=== PATIENT | female | born 1990 | race Caucasian/White ===

== ENCOUNTER 2017-03-20 16:19 | Emergency (ER) | payer MEDICAID, OTHER ==
[~2017-03-20] VITALS: Ht 162.6 cm; Wt 90.0 kg
[2017-03-20 16:21] VITALS: Ht 162.6 cm; Wt 90.0 kg
[2017-03-20] MEDS ORDERED: KETOROLAC 60 MG INJ IM STA (17:33)
--- NOTE | 2017-03-20 18:00 | ERD ---
ER Documentation Chief Complaint Date/Time DATE: 03/20/17 TIME: 17:30 Chief Complaint RT FOOT INJURY X 2 MONTHS AGO STEPPED ON SHARP PIECE OF WOOD , PAINFUL NOW HPI 26-year-old female who presents emergency department for right foot injury 2 months ago. Stated that she stepped on a sharp piece of wood. Never had a x- ray for this. No complaints of sharp pain to right foot. LMP: Stated it was a week ago. A0. Denies headache, head injury, neck pain, shoulder pain, chest pain, back pain, abdominal pain, nausea, vomiting, urinary symptoms, , possibility of being , numbness or tingling sensation, fever, chills. No known drug allergies. No past medical history. Surgical history of C- section. Does not take any prescription medication at home. Social: Works as a cashier assistant. ROS All systems reviewed and are negative except as per history of present illness. PMhx/Soc History of Surgery: Yes () Anesthesia Reaction: No Hx Neurological Disorder: No Hx Respiratory Disorders: No Hx Cardiac Disorders: No Hx Psychiatric Problems: No Hx Miscellaneous Medical Probl: No Hx Alcohol Use: No Hx Substance Use: No Hx Tobacco Use: No Smoking Status: Never smoker Physical Exam Vitals Vital Signs Date Time Temp Pulse Resp B/P Pulse Ox O2 Delivery O2 Flow Rate FiO2 03/20/17 16:21 98.3 90 18 139/89 98 Physical Exam Const: [] Head: Atraumatic Eyes: Normal Conjunctiva ENT: Normal External Ears, Nose and Mouth. Neck: Full range of motion..~ No meningismus. Resp: Clear to auscultation bilaterally Cardio: Regular rate and rhythm, no murmurs Abd: Soft, non tender, non distended. Normal bowel sounds Skin: No petechiae or rashes Back: No midline or flank tenderness Ext: No cyanosis, or edema. Right foot has mild swelling and tenderness to the lateral area of the superior part. Pedal pulse is within normal limits. Right ankle is unremarkable. Right knee is unremarkable. Bilateral hips are stable and unremarkable. Left lower extremity is unremarkable. No neurovascular deficit no neurological deficits. Skin is intact. Neur: Awake and alert Psych: Normal Mood and Affect Results 24 hrs Current Medications Medications (Trade) Dose Ordered Sig/Hudson Route PRN Reason Start Time Stop Time Status Last Admin Dose Admin Ketorolac Tromethamine (Toradol) 60 mg ONCE STAT IM 03/20/17 17:33 03/20/17 17:35 DC 03/20/17 18:02 Procedures/MDM 26-year-old female who presents emergency department for right foot injury 2 months ago. Stated that she stepped on a sharp piece of wood. Never had a x- ray for this. No complaints of sharp pain to right foot. LMP: Stated it was a week ago. A0. Denies headache, head injury, neck pain, shoulder pain, chest pain, back pain, abdominal pain, nausea, vomiting, urinary symptoms, , possibility of being , numbness or tingling sensation, fever, chills. No known drug allergies. No past medical history. Surgical history of C- section. Does not take any prescription medication at home. Social: Works as a cashier assistant. Physical exam: Right foot has mild swelling and tenderness to the lateral area of the superior part. Pedal pulse is within normal limits. Right ankle is unremarkable. Right knee is unremarkable. Bilateral hips are stable and unremarkable. Left lower extremity is unremarkable. No neurovascular deficit no neurological deficits. Skin is intact. Disease process was explained to the patient and family member. They both verbalized understanding and agreed with treatment, diagnostic imaging, plan of care, follow-up care. X-ray of the right foot: No acute osseous abnormality. POC urine : Negative. Treatment: Toradol IM. Jose wrap. Reevaluation: Denies headache, dizziness, blurry vision, neck pain, shoulder pain, back pain, chest pain, abdominal pain, numbness or tingling sensation. No episode of emesis in the emergency department. No neurovascular deficits prior to and after the application of Jose wrap. No neurological deficits. Differential diagnosis: Fracture versus displacement versus dislocation versus contusion versus sprain versus retained foreign body Final diagnosis: Foot contusion. Prescription: Motrin Follow-up with primary care physician the next 24-48 hours. Come back here in the emergency department for any new symptoms or any worsening of symptoms. All questions and concerns are answered. Patient verbalized understanding and agreed with the plan of care. Hemodynamically stable on discharge Departure Diagnosis: Primary Impression: Foot pain Additional Impression: Foot contusion Condition: Stable Additional Instructions: Follow-up with primary care physician the next 24-48 hours. Come back here in the emergency department for any new symptoms or any worsening of symptoms. All questions and concerns are answered. Patient verbalized understanding and agreed with the plan of care. BRAYAN PHILLIPS Mar 20, 2017 18:00
--- NOTE | 2017-03-20 18:46 | RADRPT ---
PROCEDURE: XR Foot. CLINICAL INDICATION: Injury, possible foreign body TECHNIQUE: Three views of the right foot are available for review. COMPARISON: None available FINDINGS: There is no acute osseous or articular abnormality. No evidence for fracture. Bone mineral density is preserved. The articular surfaces are smooth without evidence of marginal erosions. Type 2 os pe roneum. Plantar calcaneal spur. The soft tissues are intact without evidence of calcifications.. IMPRESSION: 1. No acute osseous abnormality. RPTAT: QQ .Chai Velasquez MD, Date Time Electronically viewed and signed by .Chai Velasquez MD, on 03/20/2017 18:46 .d/
[2017-03-20] MEDS ORDERED: IBUP800T25 PO (19:07)
== END 2017-03-20 19:49 | disposition home or self-care (01) ==
LOC: FTE 16:19
DX: S90.31XA Contusion of right foot, initial encounter (principal); W22.8XXA Striking against or struck by other objects, initial encounter; Y92.9 Unspecified place or not applicable
CPT/HCPCS: 73630; 96372; J1885; Z7502

== ENCOUNTER 2018-05-16 11:59 | Outpatient (CLI) | END 2018-05-16 14:00 | disposition home or self-care (01) ==

== ENCOUNTER 2018-06-02 10:33 | Inpatient (IN) | payer MEDICAID ==
[~2018-06-02] VITALS: Ht 154.9 cm; Wt 105.0 kg
[~2018-06-02 10:33] MED LIST: OXYTOCIN 30 UNITS/LR 500 ML BAG IV ONE; PREN-93 PO
[2018-06-02 11:00] VITALS: Ht 154.9 cm; Wt 105.0 kg
[2018-06-02] MEDS ORDERED: MISOPROSTOL 200 MCG TAB PR PRN ×2 (11:00→19:00)
[2018-06-02] MEDS ORDERED: CEFAZOLIN 2 GM/50 ML (PMX) 50 ML IVPB SCH (11:00)
[2018-06-02] MEDS ORDERED: OXYTOCIN 30 UNITS/LR 500 ML IV PRN ×2 (11:00→19:00)
[2018-06-02] MEDS ORDERED: METHYLERGONOVINE 0.2 MG INJ IM PRN ×2 (11:00→19:00)
[2018-06-02] MEDS ORDERED: CARBOPROST 250 MCG INJ IM PRN ×2 (11:00→19:00)
[2018-06-02] MEDS ORDERED: OXYTOCIN 30 UNITS/LR 500 ML IV SCH (11:00)
[2018-06-02] MEDS: LACTATED RINGER'S 1,000 ML IV SCH ×2 (11:16→18:42)
--- NOTE | 2018-06-02 14:53 | HP ---
Date/Time of Note Date/Time of Note DATE: 06/02/18 TIME: 14:46 OB - History Hx of Present Free Text/Dictation 27 years old female . 39 weeks 1 day . History of previous , admitted to the hospital for repeat . He has declined trial of labor vaginal delivery post . Chief Complaint: 39 weeks history of previous Estimated Due Date: Jun 08, 2018 : 2 Para: 1 Care: Good Care Obstetrical Complications: None Medical Complications: None Past Family/Social History * Past Medical, Surgical, Family and Obstetric Histories reviewed from chart. Rubella: immune RPR/VDRL: Negative GBS Status: Negative HBsAG: Negative OB Admission Exam Physical Exam HEENT: WNL Heart: Rhythm Normal Lungs: Clear, Equal Abdomen: WNL Extremities: Normal Reflexes: Normal Cervical Dilatation: None Effacement: 0% Membranes: Intact Heart Rate: 130's Accelerations: Accelerations Present Decelerations: No Decelerations Contractions on Admission: >10 Minutes Apart Intensity: Mild Last 72 hours Lab Results CBC & BMP 06/02/18 11:00 OB Assessment/Plan Reason for admission: other (39 weeks1/7 history of previous C section) Other plan: 27 years old 39 weeks history of previous . Admitted to the hospital for repeat . Patient has declined trial of labor post C- section. Complication of surgery including but not limited to bowel bladder injury wound infection, wound hematoma discussed. YUSUF AHMADI MD Jun 02, 2018 14:53
--- NOTE | 2018-06-02 14:57 | PREAC ---
Date/Time of Note Date/Time of Note DATE: 06/02/18 TIME: 14:55 Anesthesia Eval and Record Evaluation Time Pre-Procedure Interview DATE: 06/02/18 TIME: 14:55 Age 27 Sex female NPO: 8 hrs Preoperative diagnosis IUP Planned procedure Repeat Csection Past Medical History Past Medical History: None Surgery & Anesthesia Issues No known issue Meds Anticoagulation: No Beta Malik within 24 hr: No Reason Beta Malik not given: Pt. not on B-Malik Reported Medications Vit No.124/Iron/FA ( Vitamin Tablet) 1 Each Tablet, 1 EACH PO DAILY, TAB 05/16/18 Current Medications Lactated Ringer's 1,000 ml @ 125 mls/hr Q8H IV Last administered on 06/02/18at 11:16; Admin Dose 125 MLS/HR; Start 06/02/18 at 10:42 Cefazolin Sodium/ Dextrose 50 ml @ 100 mls/hr ONCE IVPB ; Start 06/02/18 at 11:00 Oxytocin/Lactated Ringer's 500 ml @ 125 mls/hr POST IV ; Start 06/02/18 at 11:00 Oxytocin/Lactated Ringer's 500 ml @ 0 mls/hr ONCE PRN IV VAGINAL BLEEDING; Start 06/02/18 at 11:00 Methylergonovine Maleate (Methergine) 0.2 mg ONCE PRN IM VAGINAL BLEEDING; Start 06/02/18 at 11:00 Carboprost Tromethamine (Hemabate) 250 mcg ONCE PRN IM VAGINAL BLEEDING; Start 06/02/18 at 11:00 Misoprostol (Cytotec) 1,000 mcg ONCE PRN MD VAGINAL BLEEDING; Start 06/02/18 at 11:00 Meds reviewed: Yes Allergies Coded Allergies: No Known Allergy (Unverified , 05/16/18) Allergies Reviewed: Yes Labs/Studies Labs Reviewed: Reviewed by anesthesiologist Result Diagram: 06/02/18 1100 Laboratory Tests 06/02/18 11:00 Blood Bank Test 06/02/18 11:00 Antibody Screen NEGATIVE Blood Type A POSITIVE Rh Immune Globulin Candidate NO test: Positive Studies: ECG Pre-procedure Exam Last vitals BP:106/56,pulse:78, spo2:100%, T:98,9 Airway: Adequate mouth opening, Adequate thyromental dist Mallampati: Mallampati II Teeth: Normal Lung: Normal Heart: Normal ASA Physical Status ASA physical status: 2 Emergency: None Planned Anesthetic Neuraxial: Spinal Planned Pain Management Sub-arachniod narcotics, Parenteral pain med Pre-operative Attestations Prior to commencing anesthesia and surgery, the patient was re-evaluated, there was verification of: *The patient's identity *The results of appropriate recent lab work and preoperative vital signs *The above evaluation not changing prior to induction *Anesthetic plan, risk benefits, alternative and complications discussed with patient/family; questions answered; patient/family understands, accepts and wishes to proceed. TIKI ALDRICH MD Jun 02, 2018 14:57
[2018-06-02] MEDS ORDERED: ONDANSETRON 4 MG INJ ONE (15:03)
[2018-06-02] MEDS ORDERED: morphine SULFATE/PF (10 MG/10 ML) INJ ONE (15:03)
[2018-06-02] MEDS ORDERED: PHENYLephrine (100 MCG/ML) 5ML SYG ONE (15:04)
[2018-06-02] MEDS ORDERED: OXYTOCIN 10 UNIT INJ ONE (15:04)
--- NOTE | 2018-06-02 16:18 | OPR ---
Operative Report Planned Procedure Free Text/Dictation 39 weeks . History of previous section. Declined Procedure date Jun 02, 2018 Procedure(s) Repeat Performed by see signature line Guest Relations Coordinator: MELISA BARBOSA MD 2nd Guest Relations Coordinator None Anesthesiologist: TIKI ALDRICH MD Pre-procedure diagnosis 39 weeks history of previous declines [id number] Anesthesia Type: [id number] spinal Post-Procedure Post-procedure diagnosis Same as above Findings Live Baby boy 8 and 9 Estimated Blood Loss: 500 - 600 mls Specimen(s) Adhesion tissue sent to pathology Grafts/Implant(s) none Complication(s) none Pt Condition post procedure: stable Procedure Description Under satisfactory spinal anesthesia patient prepped and draped and placed in supine position. Pfannenstiel incision was made. Incision carried through the subcutaneous tissue. Fascia incised to the length of incision. Rectus muscle divided in midline. Peritoneum exposed and entered to a vertical incision. Explo ration of abdomen revealed [gravid uterus at term normal-appearing tubes and ovaries.] Bladder flap was developed. Transverse incision was made in the lower segment of the uterus. Amniotic sac ruptured, [clear amniotic fluid noted.] Live baby boy was delivered from unengaged vertex.Naso oropharyngeal suction was performed. Baby handed to the team for immediate attention. Patient received 20 units of Pitocin. Placenta delivered manually intact. Uterine cavity cleaned with a wet sponge and drainage established. Uterus closed in 2 layers using Monocryl #1 in continuous fashion. Peritoneal cavity irrigated with warm saline. Sponge needle instrument reported to be correct. Abdominal peritoneum closed with 2-0 chromic catgut continuously. Fascia closed with #1 PDS in a continuous fashion. Subcutaneous tissue irrigated with warm saline and approximated with 2-0 chromic catgut skin closed with N sorb. Estimated blood loss 600 cc urine bag containing [200] mL of [clear] urine. Patient tolerated procedure well and transferred to recovery room in good condition. YUSUF AHMADI MD Jun 02, 2018 16:18
--- NOTE | 2018-06-02 16:51 | PAC ---
Date/Time of Note Date/Time of Note DATE: 06/02/18 TIME: 16:50 Post-Anesthesia Notes Post-Anesthesia Note Activity: WNL Respiratory function: WNL Cardiovascular function: WNL Mental status: Baseline Pain reasonably controlled: Yes Hydration appropriate: Yes Nausea/Vomiting absent: Yes Comments BP:120/56,pulse:72, spo2:100%, T:98,8 TIKI ALDRICH MD Jun 02, 2018 16:51
[2018-06-02] MEDS ORDERED: NALOXONE (0.4 MG/ML) INJ IV PRN (17:00)
[2018-06-02] MEDS ORDERED: DIPHENHYDRAMINE 50 MG INJ IV PRN (17:00)
[2018-06-02] MEDS ORDERED: ONDANSETRON 4 MG INJ IV PRN (17:00)
[2018-06-02] MEDS ORDERED: morphine 2 MG INJ IV PRN (17:00)
[2018-06-02 18:35] VITALS: BP 119/55; PULSE 92; RESP 18
[2018-06-02] MEDS ORDERED: LANOLIN HPA 1 PKT TOP PRN (19:00)
[2018-06-02] MEDS ORDERED: HYDROCODONE/APAP (5/325) TAB PO PRN (19:00)
[2018-06-02] MEDS ORDERED: OXYCODONE/ACETAMINOPHEN (5/325) TAB PO PRN ×2 (19:00)
[2018-06-02] MEDS ORDERED: CEFAZOLIN 1 GM/50 ML (PMX) 50 ML IVPB SCH (19:00)
[2018-06-02] MEDS: KETOROLAC 30 MG INJ IV PRN (19:01)
[2018-06-02 20:00] VITALS: BP 119/59; PULSE 95; RESP 18
[2018-06-02] MEDS: OXYTOCIN 30 UNITS/LR 500 ML IV SCH (21:08)
[2018-06-03] VITALS: BP 103/54; PULSE 107; RESP 18
[2018-06-03] MEDS: OXYTOCIN 30 UNITS/LR 500 ML IV SCH ×7 (01:36→22:40)
[2018-06-03] MEDS: KETOROLAC 30 MG INJ IV PRN ×2 (01:40→09:44)
[2018-06-03 04:00] VITALS: BP 104/54; PULSE 108; RESP 20
--- NOTE | 2018-06-03 04:30 | NUR ---
PT ASSISTED UP TO CHAIR. GAIT STEADY.
[2018-06-03] MEDS: LACTATED RINGER'S 1,000 ML IV SCH ×3 (06:29→18:42)
--- NOTE | 2018-06-03 06:30 | NUR ---
EOSS PT SAT UP IN CHAIR X 2HRS. FUNDUS FIRM AT U WITH SMALL TO MODERATE LOCHIA. PAIN MANAGED WELL. URINE OUTPUT WITHIH SAMINA LIMITS. BONDING WELL WITH BABY. CONDITION STABLE. CBC THIA MORNING.
[2018-06-03 08:00] VITALS: BP 117/59; PULSE 99
[2018-06-03 12:00] VITALS: BP 115/60; PULSE 98; RESP 18
[2018-06-03 16:00] VITALS: BP 119/68; PULSE 100; RESP 20
[2018-06-03] MEDS: IBUPROFEN 600 MG TAB PO SCH (17:23)
[2018-06-03] MEDS: HYDROCODONE/APAP (5/325) TAB PO PRN (18:28)
--- NOTE | 2018-06-03 18:55 | NUR ---
EOSS: PT STABLE, ASSISTED TO BATHROOM, AMBULATED WELL, VOIDED 600, DENIES DIZZINESS. NO DISTRESS NOTED. Addendum: 06/03/18 at 1856 by RE MARTIN RN Amended: Links added.
[2018-06-03 20:00] VITALS: BP 126/74; PULSE 105; RESP 20
[2018-06-03] MEDS: SENNA/DOCUSATE NA (8.6MG/50MG) TAB PO SCH (21:29)
--- NOTE | 2018-06-03 22:45 | NUR ---
Offered to Pt removal of dressing, pt refused at this time. Explained the risk of infection and the need to remove dressing. Explained incisional care to Pt and .
[2018-06-04] MEDS: OXYTOCIN 30 UNITS/LR 500 ML IV SCH ×3 (02:40→10:26)
[2018-06-04] MEDS: HYDROCODONE/APAP (5/325) TAB PO PRN ×2 (03:01→16:29)
[2018-06-04] MEDS: IBUPROFEN 600 MG TAB PO SCH ×4 (05:36→17:52)
--- NOTE | 2018-06-04 06:46 | NUR ---
EOSS: Pt is in stable condition. VSS. Up and voiding. Fundus firm with small amount of lochia noted. Bonding well with baby. Jaundice information given.
[2018-06-04 08:00] VITALS: BP 123/78; PULSE 100; RESP 18
[2018-06-04] MEDS: SENNA/DOCUSATE NA (8.6MG/50MG) TAB PO SCH ×2 (10:09→22:29)
[2018-06-04] MEDS ORDERED: BISACODYL 30 ML ENEMA PR ONE (14:30)
--- NOTE | 2018-06-04 15:40 | QN ---
Documentation Comment Post day 2 Afebrile Vital signs are stable Abdomen soft. Bowel sounds present. Incision dry. No bowel movement Enema recommended YUSUF AHMADI MD Jun 04, 2018 15:40
[2018-06-04 16:05] VITALS: BP 112/74; PULSE 102; RESP 20
--- NOTE | 2018-06-04 18:06 | NUR ---
EOSS: PT IS STABLE, INCISION INTACT WITH STERI-STRIPS, +GAS, +BM, REFUSED FLEET ENEMA. DOING WELL, PT REFUSED PUMPING, DESPITE EDUCATION AND RECOMMENDATIONS, DISCUSSED ABOUT RISKS FOR ENGORMENT, NIPPLE CONFUSION. LC TO FOLLOW UP. Addendum: 06/04/18 at 1808 by RE MARTIN RN Amended: Links added.
[2018-06-04 20:00] VITALS: BP 126/65; PULSE 92; RESP 18
[2018-06-05] MEDS: IBUPROFEN 600 MG TAB PO SCH ×3 (00:49→11:55)
--- NOTE | 2018-06-05 06:53 | NUR ---
Patient is stable, ambulating well. Incision is dry and intact. Pain level is mild, Motrin given every 6 hrs. Patient refused to breastfeed due to nipples being abrased with some bleeding with stimulation to nipple when and pumping. Patient has bottle fed the entire shift.
[2018-06-05 08:25] VITALS: BP 123/65; PULSE 91; RESP 20
[2018-06-05] MEDS ORDERED: DIPHTH/TET/ACEL PERTUSS (ADULT) 0.5 ML VIAL IM* ONE (09:00)
[2018-06-05] MEDS: SENNA/DOCUSATE NA (8.6MG/50MG) TAB PO SCH (09:00)
--- NOTE | 2018-06-05 09:42 | PD.PPDC ---
PEDIATRIC NURSE Discharge Instruction Condition [id number] Patient Condition: Bjdvl0r Good Diet [id number] Diet: Duibx7s Resume Regular Diet Activity/Restrictions Intxy7Ic Activity: Lgxdd3m Normal Activity May Shower [id number] Restrictions: Nvaya3f No Exercising No Lifting No Driving No Sexual Activity Nothing in the Vagina No [place] No Tampons, douche Follow-up Follow-up with Physician: 1, Week/Weeks Provider Information: Post instructions given recommended to make appointment to be seen at the clinic in 1 week Return to clinic for [id number] [employer] Instructions: [id number] Fever greater than 101 Chills Worsening abdominal pain Excessive Vaginal Bleeding More than 2 pads per hour Unable to tolerate diet Kstia1Vr OB Instructions: Mreyw0w Breast Tenderness Depression Blurried Vision Headache [id number] Surgical Instructions: Bjqvf1j Incisional Drainage Incisional Redness YUSUF AHMADI MD Jun 05, 2018 09:42
--- NOTE | 2018-06-05 09:48 | DS ---
Date/Time of Note Date/Time of Note DATE: 06/05/18 TIME: 09:47 Discharge Summary Admission/Discharge Info Admit Date/Time Jun 02, 2018 at 10:33 Discharge Date/Time June 05, 2018 at 10 AM Discharge Diagnosis Post repeat day 3 Patient Condition: Good Consults None Procedures Repeat Hx of Present Illness Term history of previous Hospital Course Satisfactory recovery uneventful Home Meds Reported Medications Vit No.124/Iron/FA ( Vitamin Tablet) 1 Each Tablet, 1 EACH PO DAILY, TAB 05/16/18 Follow-up Plan Post instruction given recommended to make appointment to be seen at the clinic in 1 week Primary Care Provider Care Physician No Primary Time spent on discharge: < 30 minutes YUSUF AHMADI MD Jun 05, 2018 09:48
--- NOTE | 2018-06-05 16:32 | NUR ---
DISCHARGED IN STABLE CONDITION
== END 2018-06-05 17:17 | disposition home or self-care (01) | DRG 788 ==
LOC: L-D 10:33 → PP1 18:33
PROVIDERS: ADMIT Obstetrics & Gynecology; ATTEND Obstetrics & Gynecology
PROC: 10D00Z1 Extraction of Products of Conception, Low, Open Approach (ICD-10-PCS; principal; 2018-06-02 14:00)
DX: O34.211 Maternal care for low transverse scar from previous cesarean delivery (principal); Z3A.39 39 weeks gestation of pregnancy; Z37.0 Single live birth
CPT/HCPCS: 85025; 85610; 85730; 86592; 86850; 86900; 86901; 87340; 88304; 90686; 90715; 99464; J0690; J1885; J2274; J2370; J2405; J2590; J7120